=== PATIENT | male | born 1965 | race Caucasian/White ===

== ENCOUNTER 2021-10-20 06:32 | Inpatient (IN) ==
[2021-10-20] MEDS ORDERED: *HR* FentaNYL (PF) 100 MCG/2 ML VIAL ONE (07:06)
[2021-10-20] MEDS ORDERED: *HR* Propofol 200 MG/20 ML VIAL IVP ONE (07:07)
[2021-10-20] MEDS ORDERED: *HR* Midazolam HCl 2 MG/2 ML VIAL ONE (07:07)
[2021-10-20] MEDS ORDERED: Lidocaine -MPF 4% 5 ML AMPUL ONE (07:08)
[2021-10-20] MEDS ORDERED: Ondansetron 4 MG/2 ML VIAL IVP PRN ×2 (07:15→12:49)
[2021-10-20] MEDS ORDERED: *HR* Succinylcholine 200 MG/10 ML VIAL IVP ONE (07:16)
[2021-10-20] MEDS ORDERED: CeFAZolin Syr 2,000MG/20 ML 2,000 MG/20 ML SYRINGE IVPB ONE (07:17)
[2021-10-20] MEDS ORDERED: Lidocaine -MPF 2% 2 ML VIAL ONE (07:17)
[2021-10-20] MEDS ORDERED: Ondansetron 4 MG/2 ML VIAL ONE (07:18)
[2021-10-20] MEDS ORDERED: EPHEDrine 50 MG/ML VIAL ONE (07:21)
[2021-10-20] MEDS ORDERED: Ringers Solution, Lactated 1,000 ML IVC SCH (07:30)
[2021-10-20] MEDS ORDERED: Acetaminophen IV 1,000 MG/100 ML BAG IVPB ONE (08:26)
[2021-10-20] MEDS ORDERED: *HR* Rocuronium Bromide 50 MG/5 ML VIAL ONE (08:33)
[2021-10-20] MEDS ORDERED: Sugammadex Sodium 200 MG/2 ML VIAL IV ONE (10:05)
[2021-10-20] MEDS ORDERED: *HR* HYDROMORPHONE 2 MG/ML VIAL ONE (10:06)
[2021-10-20] MEDS: *HR* HYDROmorphone PF 0.5 MG/0.5 ML SYRINGE IVP PRN ×2 (11:45→11:51)
[2021-10-20] MEDS ORDERED: Naloxone 0.4 MG/ML INJ IVP PRN (12:49)
[2021-10-20] MEDS ORDERED: *HR* OxyCODONE Immed Rel 5 MG TABLET PO PRN (12:49)
[2021-10-20] MEDS ORDERED: *HR* Belladonna Alkaloids/Opium 30 MG RECTAL SUPPOSITORY RC PRN (12:49)
[2021-10-20] MEDS: 0.9 % Sodium Chloride 1,000 ML IVC SCH (14:28)
[2021-10-20] MEDS: Acetaminophen IV 1,000 MG/100 ML BAG IVPB SCH ×2 (16:11→23:16)
[2021-10-20] MEDS: CeFAZolin 2 GM/100 ML BAG IVPB SCH ×2 (16:11→23:39)
[2021-10-20] MEDS: *HR* Heparin 5,000 UNIT/ML VIAL SQ SCH (17:24)
[2021-10-20] MEDS: *HR* HYDROcodone/Acet 5/325 mg TABLET PO PRN (18:26)
[2021-10-20] MEDS: Famotidine 20 MG TABLET PO SCH (20:20)
[2021-10-21 02:50] VITALS: O2SAT 95
[2021-10-21] MEDS: *HR* Heparin 5,000 UNIT/ML VIAL SQ SCH (05:25)
[2021-10-21] MEDS: *HR* HYDROcodone/Acet 5/325 mg TABLET PO PRN (05:30)
[2021-10-21] MEDS: 0.9 % Sodium Chloride 1,000 ML IVC SCH (05:37)
[2021-10-21 07:25] LABS: Basophils % 0.1 %; Hematocrit 38.9 % (37.5-50.1); Hemoglobin 13.5 g/dL (12.9-16.9); Immature Granulocytes % 0.6 % (0-4); Lymphocytes # 0.8 K/mcL (0.6-4.6); Lymphocytes % 6.1 %; Mean Corpuscular HGB Conc 34.7 g/dL (31.6-35.5); Mean Corpuscular Hemoglobin 31.8 pg (28.0-33.3); Mean Corpuscular Volume 91.7 fL (83.0-100.0); Mean Platelet Volume 10.2 fL (9.4-12.4); Monocytes # 1.4 K/mcL (0.0-1.3); Monocytes % 11.1 %; Neutrophils # 10.3 K/mcL (1.6-8.9); Platelet Count 176 K/mcL (140-400); Red Blood Count 4.24 M/mcL (4.19-5.50); Red Cell Distribution Width 12.6 % (11.5-14.5); Segmented Neutrophils % 82.1 %; White Blood Count 12.6 K/mcL (4.3-11.1)
[2021-10-21 07:41] LABS: BUN/Creatinine Ratio 18 (6-26); Blood Urea Nitrogen 25 mg/dL (6-20); Calcium 8.5 mg/dL (8.6-10.3); Carbon Dioxide 26 mEq/L (23-29); Chloride 102 mEq/L (98-107); Glucose 100 mg/dL (70-105); Osmolality,Calculated 282 (280-300); Potassium 4.2 mEq/L (3.5-5.1); Sodium 134 mEq/L (136-145); eGFR For African Americans > 60 (> 60); eGFR For Non-African Americans 53 (> 60)
[2021-10-21 07:57] VITALS: BP 125/83; PULSE 70; TEMP 98.3
[2021-10-21] MEDS: Famotidine 20 MG TABLET PO SCH (07:58)
[2021-10-21] MEDS: Acetaminophen IV 1,000 MG/100 ML BAG IVPB SCH (08:00)
== END 2021-10-21 10:14 | disposition home or self-care (01) | DRG 658 ==
LOC: SAMDAY 06:32 → 3ANU 12:39
PROVIDERS: ADMIT Urology; ATTEND Urology